=== PATIENT | male | born 1955 | race Caucasian/White ===

== ENCOUNTER 2019-05-15 09:31 | Outpatient (CLI) | payer BC ==
--- NOTE | 2019-05-17 09:29 | CT Report ---
Reason: NICOTINE DEPENDENCE Procedure Date: 05/15/2019 Accession Number: [id number] / [id number] Procedure: CT - Low Dose Lung Cancer Screen CPT Code: Final Report FULL RESULT: EXAM CT LUNG SCREEN EXAM DATE: 05/15/2019 09:48 AM. HISTORY: 63-year-old patient with [id number] smoking history. Currently smoking: Yes. Years since quitting: None. Discomfort in left chest for 3 months. COMPARISON: CHEST SCREEN LOW DOSE W/O 03/13/2018 8:19 AM. TECHNIQUE: CT examination of the entire thorax without contrast was performed using low-dose technique. Thin section coronal, axial, sagittal and MIP axial images were obtained. In accordance with CT protocol optimization, one or more of the following dose reduction techniques were utilized for this exam: automated exposure control, adjustment of mA and/or KV based on patient size, or use of iterative reconstructive technique. FINDINGS: Nodules: Right upper lobe: None. Right middle lobe: None. Right lower lobe: 1.5 mm nodule, image 100, series 4, stable. Left upper lobe: None. Left lower lobe: None. Emphysema: None. Pleura: Unremarkable. Aorta: Mild atheromatous disease. No aneurysm. Mediastinum: Heart size is normal. Trace pericardial effusion. Small hiatal hernia. No enlarged mediastinal or hilar lymph nodes. Visualized thyroid gland is unremarkable. Coronary calcifications: Mild coronary artery calcified plaque. Other pulmonary findings: None. Other extrapulmonary findings: Exophytic 4 cm low-attenuation lesion only partially included arising from left kidney, where visualized is stable. Otherwise upper abdomen is unremarkable. Degenerative changes of the thoracic spine. No acute osseous abnormalities. IMPRESSION: Lung-RADS ASSESSMENT CATEGORY: 2 - Benign appearance or behavior. Probability of malignancy: Less than 1%. RECOMMENDATION: Recommended follow up based on ACR Lung-RADS Version 1.1 Guidelines which recommends follow-up low-dose chest CT in 12 months. RADIA
== END 2019-05-15 09:32 | disposition home or self-care (01) ==
LOC: DI 09:31
PROVIDERS: ATTEND Registered Nurse
DX: Z12.2 Encounter for screening for malignant neoplasm of respiratory organs (principal); F17.200 Nicotine dependence, unspecified, uncomplicated

== ENCOUNTER 2020-01-02 16:51 | Outpatient (CLI) | payer BC | END 2020-01-02 16:52 | disposition home or self-care (01) | LOC: COV 16:51 | PROVIDERS: ATTEND Family Medicine | DX: Z20.828 Contact with and (suspected) exposure to other viral communicable diseases (principal) ==

== ENCOUNTER 2022-07-28 08:00 | Outpatient (CLI) | payer BC, OTHER ==
--- NOTE | 2022-07-28 16:52 | XRAY Report ---
PROCEDURE: Toe(s) LT INDICATIONS: CONTUSION OF LEFT LESSER TOE(S) TECHNIQUE: 3 views of the second toe(s) acquired. COMPARISON: None FINDINGS: Bones: Poorly defined vertical linear lucency is traversing the inferior aspect of the second middle phalanx extending to the articular surface. It is not seen in all views. No suspicious bony lesions. Soft tissues: No suspicious soft tissue densities. IMPRESSION: Possible nondisplaced second middle phalanx fracture. However, it is not well seen on all views and c ould be artifactual. Recommend correlation point tenderness and follow-up imaging in 7-10 days. Reviewed by: Lakesha Bear MD on 07/28/2022 4:50 PM PDT Approved by: Lakesha Bear MD on 07/28/2022 4:50 PM PDT Station ID: [id number]
== END 2022-07-28 23:59 | disposition home or self-care (01) ==
LOC: DI.S 08:00
PROVIDERS: ATTEND Physician Assistant Medical
DX: S90.122A Contusion of left lesser toe(s) without damage to nail, initial encounter (principal)
CPT/HCPCS: 73660